=== PATIENT | female | born 1940 | race Hispanic/Latino ===

== ENCOUNTER 2023-08-31 12:46 | Emergency (ER) | payer OTHER ==
[2023-08-31 13:27] LABS: Absolute Basophils 0.1 K/uL (0-0.5); Absolute Eosinophils 0.1 K/uL (0-0.5); Absolute Lymphocytes (CBC) 3.8 K/uL (0.7-4.9); Absolute Monocytes 0.9 K/uL (0.1-1.3); Absolute Neutrophil 4.6 K/uL (1.8-8.0); Basophils % 0.6 % (0-1.3); Eosinophils % 0.9 % (0-4.4); Hematocrit 39.6 % (36.0-45.0); Hemoglobin 13.5 g/dL (12.0-15.0); Lymphocytes % 40.3 % (15.3-44.8); MCH 31.7 pg (27.0-35.0); MCV 93.1 fL (80-100); MPV 7.1 fL (7.6-11.3); Monocytes % 9.5 % (3.3-12.3); Neutrophils % 48.7 % (41.7-73.7); Platelets 245 thou/uL (152-406); RBC Red Blood Cell Count 4.25 M/uL (3.86-4.86); Red Cell Distribution Width 13.7 % (12.1-15.2)
[2023-08-31 13:38] LABS: Anion Gap 9.5 mEq/L (5.0-15.0); Potassium 3.5 mEq/L (3.5-5.1)
--- NOTE | 2023-08-31 14:17 | RAD REPORT ---
EXAM DESCRIPTION: CT - Head angio - 08/31/2023 2:08 pm CLINICAL HISTORY: neck pain Headache, drowsiness COMPARISON: <Comparisons> TECHNIQUE: CT angiography of the head was performed with MIPs. All CT scans are performed using dose optimization technique as appropriate and may include automated exposure control or mA/KV adjustment according to patient size. FINDINGS: No evidence of large vessel occlusion. No evidence of aneurysm is detected. No flow-limiti ng stenosis or vascular malformation identified. Antegrade flow is seen in the vertebral arteries. The vertebral arteries are codominant. The visualized dural venous sinuses are patent. IMPRESSION: No significant flow abnormality is detected.
--- NOTE | 2023-08-31 14:19 | RAD REPORT ---
EXAM DESCRIPTION: CT - Neck Angio - 08/31/2023 2:08 pm CLINICAL HISTORY: PAIN Neck pain, swelling COMPARISON: <Comparisons> TECHNIQUE: CT angiography of the neck vessels was performed with MIPs. All CT scans are performed using dose optimization technique as appropriate and may include automated exposure control or mA/KV adjustment according to patient size. FINDINGS: A left aortic arch is identified with normal three vessel configuration of the great vesse ls. No significant flow abnormality is seen of the common carotid bilaterally. Mild to moderate hard plaquing in both proximal internal carotid arteries, more severe on the right. Proximal right ICA demonstrates stenosis of 50-60% based on NASCET criteria. Normal flow is seen within both vertebral arteries. The upper lung conti are emphysematous. IMPRESSION: Moderate hard plaquing in both proximal internal carotid arteries, greater on the right. 50-60% stenosis based on NASCET criteria of the proximal right ICA. No severe stenosis. NASCET criteria used. Mild 0-49% stenosis Moderate 50-69% stenosis Severe 70-99% stenosis
--- NOTE | 2023-08-31 14:49 | ER ---
Nurse's Notes [facility] Name: Nadja Angel Age: 83 yrs Sex: Female : 1940 Arrival Date: 08/31/2023 Time: 12:46 Bed 5 Private MD: Diagnosis: Neck pain;Essential (primary) hypertension Presentation: 08/30 13:00 Chief complaint: Patient states: reports neck pain for the last 4 days. States she has cp4 only been working in her garden. 13:00 Coronavirus screen: Client denies travel out of the [place] in the last 14 days. At this cp4 time, the client does not indicate any symptoms associated with coronavirus-19. Ebola Screen: Patient negative for fever greater than or equal to 101.5 degrees Fahrenheit, and additional compatible Ebola Virus Disease symptoms Patient denies exposure to infectious person. Patient denies travel to an Ebola-affected area in the 21 days before illness onset. No symptoms or risks identified at this time. Initial Sepsis Screen: Does the patient meet any 2 criteria? Yes Does the patient have a suspected source of infection? No. Patient's initial sepsis screen is negative. Risk Assessment: Do you want to hurt yourself or someone else? Patient reports no desire to harm self or others. Onset of symptoms was August 26, 2023. 13:00 Method Of Arrival: Ambulatory cp4 13:00 Acuity: SARAVANAN 4 cp4 Triage Assessment: 13:28 General: Appears in no apparent distress. Behavior is calm, cooperative, appropriate cp4 for age. Pain: Pain currently is 6 out of 10 on a pain scale. Musculoskeletal: Reports. Historical: - Allergies: 13:28 No Known Allergies; cp4 - Immunization history:: Adult Immunizations up to date. - Social history:: Smoking status: Patient denies any tobacco usage or history of. Screenin:29 [facility] ED Fall Risk Assessment (Adult) History of falling in the last 3 months, cp4 including since admission No falls in past 3 months (0 pts) Confusion or Disorientation No (0 pts) Intoxicated or Sedated No (0 pts) Impaired Gait No (0 pts) Mobility Assist Device Used No (0 pt) Altered Elimination No (0 pt) Score/Fall Risk Level 0 - 2 = Low Risk Oriented to surroundings, Maintained a safe environment, Assessed \T\ reinforced patient's understanding of fall precautions, Hourly rounding (assess needs \T\ fall precautionary measures) done. Abuse screen: Denies threats or abuse. Nutritional screening: No deficits noted. Tuberculosis screening: No symptoms or risk factors identified. Assessment: 13:29 Reassessment: No changes from previously documented assessment. Neuro: Level of cp4 Consciousness is awake, alert, obeys commands, Oriented to person, place, time, situation, Scallop Cutter are equal bilaterally Moves all extremities. Gait is steady, Speech is normal, Facial symmetry appears normal, Pupils are PERRLA, Intact. Vital Signs: 13:00 BP 193 / 88; Pulse 82; Resp 18; Temp 98.2; Pulse Ox 96% ; Pain 6/10; cp4 15:00 BP 167 / 74; Pulse 81; Resp 18; Pulse Ox 97% ; cp4 13:00 Pain Scale: Adult cp4 ED Course: 12:48 Patient arrived in ED. ra3 12:56 Cassius Armas DO is Attending Physician. ms3 13:01 Cori Medina is Primary Nurse. cp4 13:19 BMP Sent. cp4 13:19 CBC with Diff Sent. cp4 13:28 Triage completed. cp4 13:28 Arm band placed on right wrist. Patient placed in an exam room, on a stretcher. cp4 13:29 No provider procedures requiring assistance completed. Initial lab(s) drawn, by me, cp4 sent to lab. 13:29 Bed in low position. Call light in reach. Side rails up X 1. cp4 13:31 Missed attempt(s): 22 gauge in left antecubital area. cp4 14:10 CT Neck Angio In Process Unspecified. EDMS 14:10 CT Head Angio In Process Unspecified. EDMS 15:01 intact, bleeding controlled, No redness/swelling at site. Pressure dressing applied. cp4 15:01 Provided Education on: muscle spasms. cp4 Administered Medications: 14:59 Drug: Cyclobenzaprine PO 5 mg PO once Route: PO; cp4 Medication: 13:29 VIS not applicable for this client. cp4 Outcome: 14:48 Discharge ordered by MD. ms3 15:01 Discharged to home ambulatory, cp4 15:01 Condition: stable 15:01 Discharge instructions given to patient, Instructed on discharge instructions, follow up and referral plans. medication usage, Demonstrated understanding of instructions, follow-up care, medications, 15:03 Patient left the ED. cp4 Signatures: Dispatcher [employer] EDMS Cassius Armas DO DO ms3 Cori Medina cp4 Flaca Posey ra3
--- NOTE | 2023-08-31 14:49 | EDPHYS ---
Physician Documentation [facility] Name: Nadja Angel Age: 83 yrs Sex: Female : 1940 Arrival Date: 08/31/2023 Time: 12:46 Bed 5 Private MD: ED Physician Cassius Armas HPI: 08/30 13:22 This 83 yrs old Female presents to ER via Unassigned with complaints of Neck ms3 Pain. 13:22 83-year-old female with past medical history of hypertension, GERD, hyperlipidemia ms3 presents to the emergency department for neck stiffness and pain that is been ongoing for 4 days. The pain is rated a 6/10 and feels like her tendons are tight. Tylenol relieves the pain and laying down or bending over makes the pain worse. Patient denies headache, nausea, vomiting, or loss of balance/dizziness. Historical: - Allergies: 13:28 No Known Allergies; cp4 - Immunization history:: Adult Immunizations up to date. - Social history:: Smoking status: Patient denies any tobacco usage or history of. ROS: 13:22 Constitutional: Negative for fever, and chills. ms3 13:22 Cardiovascular: Negative for chest pain, and palpitations. Respiratory: Negative for shortness of breath, cough, wheezing, and pleuritic chest pain, Abdomen/GI: Negative for abdominal pain, nausea, vomiting, diarrhea, and constipation, Skin: Negative for injury, rash, and discoloration, 13:22 Neck: Positive for pain with movement, pain at rest, 13:22 All other systems are negative, Exam: 13:22 Constitutional: This is a well developed, well nourished patient who is awake, alert, ms3 and in no acute distress. Head/Face: Normocephalic, atraumatic. Chest/axilla: Normal chest wall appearance and motion. Nontender with no deformity. Cardiovascular: Regular rate and rhythm with a normal S1 and S2. No gallops, murmurs, or rubs. Normal PMI, no JVD. No pulse deficits. Respiratory: Lungs have equal breath sounds bilaterally, clear to auscultation and percussion. No rales, rhonchi or wheezes noted. No increased work of breathing, no retractions or nasal flaring. Abdomen/GI: Soft, non-tender, with normal bowel sounds. No distension or tympany. No guarding or rebound. No evidence of tenderness throughout. Skin: Warm, dry with normal turgor. Normal color with no rashes, no lesions, and no evidence of cellulitis. MS/ Extremity: Pulses equal, no cyanosis. Neurovascular intact. Full, normal range of motion. 13:22 Neck: External neck: tenderness, that is mild, of the left mid cervical area, right mid cervical area, left trapezius, lower cervical area and right trapezius, Vital Signs: 13:00 BP 193 / 88; Pulse 82; Resp 18; Temp 98.2; Pulse Ox 96% ; Pain 6/10; cp4 15:00 BP 167 / 74; Pulse 81; Resp 18; Pulse Ox 97% ; cp4 13:00 Pain Scale: Adult cp4 MDM: 13:03 Patient medically screened. ms3 13:22 Differential diagnosis: Cervical Disc Herniation Cervical Discogenic Pain cervical ms3 strain, Vertebral artery dissection. 14:48 Data reviewed: vital signs, nurses notes, lab test result(s), radiologic studies, CT ms3 scan, and as a result, I will discharge patient. I considered the following discharge prescriptions or medication management in the emergency department Medications were administered in the Emergency Department. See MAR. Counseling: I had a detailed discussion with the patient and/or guardian regarding the historical points, exam findings, and any diagnostic results supporting the discharge/admit diagnosis, lab results, radiology results, the need for outpatient follow up, to return to the emergency department if symptoms worsen or persist or if there are any questions or concerns that arise at home. Special discussion: I discussed with the patient/guardian in detail that at this point there is no indication for admission to the hospital. It is understood, however, that if the symptoms persist or worsen the patient needs to return immediately for re-evaluation. ED course: Discussed labs and CT findings with patient and her daughter. Patient to follow-up with primary care physician in 2 to 3 days. Patient given prescription for Flexeril. All questions were answered. Return precautions discussed include worsening symptoms, or any other concerns. On reevaluation patient is alert and oriented x 4, no apparent distress, nontoxic-appearing, ambulatory emergency primary, speaking full sentences, neurologically intact. 08/30 13:04 Order name: CBC with Diff; Complete Time: 13:40 ms3 08/30 13:04 Order name: BMP; Complete Time: 13:40 ms3 08/30 13:04 Order name: CT Neck Angio; Complete Time: 14:22 ms3 08/30 13:04 Order name: CT Head Angio; Complete Time: 14:22 ms3 Administered Medications: 14:59 Drug: Cyclobenzaprine PO 5 mg PO once Route: PO; cp4 Disposition Summary: 08/31/23 14:48 Discharge Ordered Notes: Location: Home ms3 Condition: Stable ms3 Diagnosis - Neck pain ms3 - Essential (primary) hypertension ms3 Discharge Instructions: - Discharge Summary Sheet ms3 - Hypertension, Adult ms3 - Muscle Cramps and Spasms, [id number] ms3 Forms: - Medication Reconciliation Form ms3 - Thank You Letter ms3 - Antibiotic Education ms3 - Prescription Opioid Use ms3 - Patient Portal Instructions ms3 - Leadership Thank You Letter ms3 Prescriptions: - Cyclobenzaprine 5 mg Oral Tablet - take 1 tablet ORAL route 3 times per day As needed; 15 tablet; Refills: 0, ms3 Product Selection Permitted Signatures: Dispatcher [employer] EDCassius Nye DO DO ms3 Cori Medina cp4
[2023-08-31] MEDS ORDERED: CYCLOBENZAPRINE 10 MG TAB ONE (14:54)
[2023-08-31 15:27] VITALS: BP 167/74; TEMP 98.2; O2SAT 97
== END 2023-08-31 15:03 | disposition home or self-care (01) ==
LOC: ER 12:46
DX: M54.2 Cervicalgia (principal); I10 Essential (primary) hypertension
CPT/HCPCS: 85025; 80048; 36415; 70496; 70498; 99283; Q9967